=== PATIENT | female | born 1990 | race Caucasian/White ===

== ENCOUNTER → 2023-11-19 09:29 | Outpatient (REF) | payer OTHER, SELFPAY | LOC: WDC 09:29 | PROVIDERS: ATTENDING PHYSICIAN Nurse Practitioner Family; FAMILY PHYSICIAN Physician Assistant Medical | DX: N63.20 Unspecified lump in the left breast, unspecified quadrant (principal) | CPT/HCPCS: 76642 ==

== ENCOUNTER → 2023-11-26 06:27 | Outpatient (REF) | payer OTHER, SELFPAY ==
[2023-11-26 07:49] LABS: Prolactin 15.9 ng/ml (3.0-18.6); Vitamin D, 25-OH*** 60.5 ng/mL (30-80)
[2023-11-26 07:50] LABS: Free T3 2.98 pg/ml (2.77-5.27)
[2023-11-26 08:02] LABS: TSH 2.19 uIU/ml (0.47-4.68)
[2023-11-26 08:04] LABS: Estradiol 106.4 pg/ml
[2023-11-28 20:46] LABS: DHEA Sulfate 69 ug/dL (99-340)
== END ==
LOC: REG 06:27
PROVIDERS: ATTENDING PHYSICIAN Nurse Practitioner Family; FAMILY PHYSICIAN Physician Assistant Medical
DX: E34.9 Endocrine disorder, unspecified (principal); E55.9 Vitamin D deficiency, unspecified; E53.8 Deficiency of other specified B group vitamins; R53.83 Other fatigue; H04.129 Dry eye syndrome of unspecified lacrimal gland; L30.9 Dermatitis, unspecified
CPT/HCPCS: 36415; 82306; 82627; 82670; 84144; 84146; 84270; 84402; 84403; 84443; 84481

== ENCOUNTER → 2024-02-20 06:22 | Outpatient (REF) | payer OTHER, SELFPAY ==
[2024-02-20 08:04] LABS: ALT (SGPT) 15 U/L (0-35); AST (SGOT) 24 U/L (14-36); Albumin 4.7 g/dl (3.5-5.0); Alkaline Phosphatase 50 U/L (38-126); Blood Urea Nitrogen 19 mg/dl (7-17); Calcium 9.5 mg/dl (8.4-10.2); Carbon Dioxide 25 mmol/L (22-30); Chloride 107 mmol/L (98-107); Glucose 88 mg/dl (70-99); Potassium 4.2 mmol/L (3.5-5.1); Sodium 139 mmol/L (135-145); Total Bilirubin 0.6 mg/dl (0.2-1.3); Total Protein 7.1 g/dl (6.3-8.2); eGFR > 60.00
[2024-02-20 08:32] LABS: Estradiol 111.7 pg/ml
[2024-02-20 09:02] LABS: Folate 13.9 ng/ml (2.76-20); Vitamin B12 862 pg/ml (239-931)
[2024-02-23 01:02] LABS: Zinc 72.6 ug/dL (60.0-120.0)
[2024-02-23 02:36] LABS: Homocysteine 7 umol/L (0-15)
[2024-02-23 02:44] LABS: DHEA Sulfate 70 ug/dL (99-340)
== END ==
LOC: REG 06:22
PROVIDERS: ATTENDING PHYSICIAN Nurse Practitioner Family
DX: E34.9 Endocrine disorder, unspecified (principal); E55.9 Vitamin D deficiency, unspecified; E53.8 Deficiency of other specified B group vitamins; R53.83 Other fatigue; H04.129 Dry eye syndrome of unspecified lacrimal gland; L30.9 Dermatitis, unspecified
CPT/HCPCS: 36415; 80053; 82533; 82607; 82627; 82670; 82746; 83090; 84144; 84270; 84402; 84403; 84630

== ENCOUNTER → 2024-06-17 06:38 | Outpatient (REF) | payer OTHER, SELFPAY ==
[2024-06-17 07:35] LABS: % Basophils 0.4 % (0-2); % Eosinophils 1.9 % (0-6); % Immature Granulocytes 0.2 % (0-0.5); % Lymphocytes 38.8 % (20.5-51.1); % Monocytes 4.2 % (1.7-9.3); % Neutrophils 54.5 % (42.2-75.2); Absolute Eosinophils 0.1 10^3/uL (0-0.7); Absolute Lymphocytes 2.2 10^3/uL (1.2-3.4); Absolute Monocytes 0.2 10^3/uL (0.1-0.6); Absolute Neutrophils 3.1 10^3/uL (1.4-6.5); Hemoglobin 12.2 g/dL (12.0-16.0); Mean Corpuscular Hgb 30.6 pg (27.0-31.0); Mean Corpuscular Volume 92.7 fL (81.0-99.0); Mean Platelet Volume 12.1 fL (7.4-10.4); Nucleated Red Blood Cells % 0 %; Platelet Count 167 10^3/uL (130-400); Red Blood Cell Count 3.99 10^6/uL (4.20-5.40); Red Cell Dist. Width 13.6 % (11.5-14.5); White Blood Cell Count 5.7 10^3/uL (4.8-10.8)
[2024-06-17 08:33] LABS: ALT (SGPT) 16 U/L (0-35); AST (SGOT) 23 U/L (14-36); Albumin 4.6 g/dl (3.5-5.0); Alkaline Phosphatase 39 U/L (38-126); Blood Urea Nitrogen 21 mg/dl (7-17); Calcium 9.2 mg/dl (8.4-10.2); Carbon Dioxide 26 mmol/L (22-30); Chloride 105 mmol/L (98-107); Glucose 87 mg/dl (70-99); Iron 118 ug/dl (37-170); Potassium 4.5 mmol/L (3.5-5.1); Sodium 142 mmol/L (135-145); Total Bilirubin 0.6 mg/dl (0.2-1.3); Total Protein 7.1 g/dl (6.3-8.2); eGFR > 60.00
[2024-06-17 08:40] LABS: Percent Saturation 41 % (20-50); Total Iron Binding Capacity 281 ug/dl (265-497)
[2024-06-17 09:49] LABS: Cortisol, Random 11.9 ug/dl
[2024-06-17 10:25] LABS: Folate 15.3 ng/ml (2.76-20); Vitamin B12 764 pg/ml (239-931)
[2024-06-19 11:36] LABS: DHEA Sulfate 75 ug/dL (99-340)
[2024-06-19 12:09] LABS: Homocysteine 7 umol/L (0-15)
== END ==
LOC: REG 06:38
PROVIDERS: ATTENDING PHYSICIAN Nurse Practitioner Family
DX: E34.9 Endocrine disorder, unspecified (principal); E55.9 Vitamin D deficiency, unspecified; E53.8 Deficiency of other specified B group vitamins; R53.83 Other fatigue; H04.129 Dry eye syndrome of unspecified lacrimal gland; L30.9 Dermatitis, unspecified
CPT/HCPCS: 36415; 80053; 82533; 82607; 82627; 82728; 82746; 83090; 83540; 83550; 84270; 84402; 84403; 85025

== ENCOUNTER → 2024-08-12 14:18 | Outpatient (REF) | payer OTHER, SELFPAY ==
[2024-08-12 15:49] LABS: Beta HCG Quantitative 94.35 mIU/ml
== END ==
LOC: REG 14:18
PROVIDERS: ATTENDING PHYSICIAN Advanced Practice Midwife; FAMILY PHYSICIAN Physician Assistant Medical
DX: Z34.90 Encounter for supervision of normal pregnancy, unspecified, unspecified trimester (principal)
CPT/HCPCS: 36415; 84702

== ENCOUNTER → 2024-08-14 06:47 | Outpatient (REF) | payer OTHER, SELFPAY ==
[2024-08-14 08:17] LABS: Beta HCG Quantitative 175.05 mIU/ml
== END ==
LOC: REG 06:47
PROVIDERS: ATTENDING PHYSICIAN Advanced Practice Midwife; FAMILY PHYSICIAN Physician Assistant Medical
DX: Z32.01 Encounter for pregnancy test, result positive (principal)
CPT/HCPCS: 36415; 84702

== ENCOUNTER → 2024-08-25 11:41 | Outpatient (REF) | payer OTHER, SELFPAY | LOC: REG 11:41 | PROVIDERS: ATTENDING PHYSICIAN Obstetrics & Gynecology; FAMILY PHYSICIAN Physician Assistant Medical | DX: Z34.90 Encounter for supervision of normal pregnancy, unspecified, unspecified trimester (principal) | CPT/HCPCS: 36415; 84702 ==

== ENCOUNTER → 2024-09-09 13:32 | Outpatient (REF) | payer OTHER, SELFPAY | LOC: CLAB 13:32 | PROVIDERS: ATTENDING PHYSICIAN Nurse Practitioner Family | DX: Z11.3 Encounter for screening for infections with a predominantly sexual mode of transmission (principal) | CPT/HCPCS: 87491; 87591 ==

== ENCOUNTER → 2024-09-12 11:42 | Outpatient (REF) | payer OTHER, SELFPAY ==
[2024-09-12 12:27] LABS: % Basophils 0.2 % (0-2); % Eosinophils 1.7 % (0-6); % Immature Granulocytes 0.2 % (0-0.5); % Lymphocytes 41.2 % (20.5-51.1); % Monocytes 5.6 % (1.7-9.3); % Neutrophils 51.1 % (42.2-75.2); Absolute Eosinophils 0.1 10^3/uL (0-0.7); Absolute Lymphocytes 2.2 10^3/uL (1.2-3.4); Absolute Monocytes 0.3 10^3/uL (0.1-0.6); Absolute Neutrophils 2.7 10^3/uL (1.4-6.5); Mean Corp Hgb Conc. 33.3 g/dL (33.0-37.0); Mean Corpuscular Hgb 29.5 pg (27.0-31.0); Mean Corpuscular Volume 88.5 fL (81.0-99.0); Mean Platelet Volume 12.1 fL (7.4-10.4); Nucleated Red Blood Cells % 0 %; Platelet Count 159 10^3/uL (130-400); Red Blood Cell Count 3.73 10^6/uL (4.20-5.40); Red Cell Dist. Width 13.5 % (11.5-14.5); White Blood Cell Count 5.3 10^3/uL (4.8-10.8)
[2024-09-12 12:28] LABS: Urine Albumin Negative (Neg - Trace); Urine Bilirubin Negative (Negative); Urine Character Clear (Clear); Urine Color Yellow; Urine Glucose Negative (Negative); Urine Ketone Negative (Negative); Urine Leukocyte 3+ (Negative); Urine Nitrite Negative (Negative); Urine Occult Blood Negative (Negative); Urine Urobilinogen Negative (Neg - 1+)
[2024-09-12 12:49] LABS: Glycohemoglobin (HgbA1c) 5.4 % (4.0-5.6)
[2024-09-12 13:09] LABS: Urine Squamous Cell >30 /LPF (Few)
[2024-09-12 13:10] LABS: Urine Bacteria Few (Negative); Urine White Cell 16-20 /HPF (0-5)
[2024-09-12 14:16] LABS: HIV Combo Negative (Negative)
[2024-09-14 21:24] LABS: Hepatitis B Surface Antigen Negative (Negative)
[2024-09-14 21:41] LABS: Hepatitis B Core Ab, Total Negative (Negative); Hepatitis B Surface Antibody Positive; Hepatitis C Antibody Negative (Negative)
== END ==
LOC: REG 11:42
PROVIDERS: ATTENDING PHYSICIAN Nurse Practitioner Family; FAMILY PHYSICIAN Physician Assistant Medical
DX: Z32.01 Encounter for pregnancy test, result positive (principal)
CPT/HCPCS: 36415; 81003; 81015; 83036; 84702; 85025; 86704; 86706; 86780; 86803; 86850; 86900; 86901; 87086; 87340; 87389

== ENCOUNTER → 2024-10-08 14:02 | Outpatient (REF) | payer OTHER, SELFPAY | LOC: REG 14:02 | PROVIDERS: ATTENDING PHYSICIAN Student in an Organized Health Care Education/Training Program | DX: O02.1 Missed abortion (principal) | CPT/HCPCS: 36415; 84702 ==

== ENCOUNTER 2024-10-14 06:25 | Day surgery (SDC) | payer OTHER, SELFPAY ==
[2024-10-14] VITALS (7 sets, daily range): BP systolic 86–98; BP diastolic 54–66; BMI 20.1
[2024-10-14] MEDS: NORMOSOL-R/PLASMALYTE-A 1000 IV (08:57)
[2024-10-14] MEDS: VIBRAMYCIN 270 MG IV (09:13)
--- NOTE | 2024-10-14 10:37 | W.IMMPOSTOP ---
Surgical Immed Post Op Note
-
Primary Surgeon: Orly Hutton,
Assisting Surgeon: none
Pre-op Diagnosis: Missed miscarriage 12 weeks by LMP, [id number] by CRL
Post-op Diagnosis: Same
Procedure Performed: Dilation and evacuation with suction
Anesthesia Type: General LMA Dr. Carter
Specimen / Cultures: Products of conception
Estimated Blood Loss: 100 mL
Complications: None
Antibiotics: Doxycycline 200 mg IV preop
Operative Findings: Uterus enlarged approximately 12 weeks size, products of conception visualized upon suction.
Blood type is O+ She does not require RhoGAM
Counts correct x 2
== END 2024-10-14 11:30 | disposition home or self-care (01) ==
LOC: SDS 06:25
PROVIDERS: ATTENDING PHYSICIAN Obstetrics & Gynecology
PROC: 10D17ZZ Extraction of Products of Conception, Retained, Via Natural or Artificial Opening (ICD-10-PCS; 2024-10-14)
DX: O02.1 Missed abortion (principal); Z3A.12 12 weeks gestation of pregnancy
CPT/HCPCS: 59820; 88305

== ENCOUNTER 2024-10-17 16:35 | Emergency (ER) | payer OTHER, SELFPAY ==
[2024-10-17 16:52] VITALS: BP 92/61
[2024-10-17 17:21] LABS: % Basophils 0.1 % (0-2); % Eosinophils 0.8 % (0-6); % Immature Granulocytes 0.3 % (0-0.5); % Lymphocytes 15.3 % (20.5-51.1); % Monocytes 4.2 % (1.7-9.3); % Neutrophils 79.3 % (42.2-75.2); Absolute Eosinophils 0.1 10^3/uL (0-0.7); Absolute Lymphocytes 1.1 10^3/uL (1.2-3.4); Absolute Monocytes 0.3 10^3/uL (0.1-0.6); Absolute Neutrophils 5.6 10^3/uL (1.4-6.5); Hematocrit 22.4 % (37.0-47.0); Hemoglobin 7.9 g/dL (12.0-16.0); Mean Corp Hgb Conc. 35.3 g/dL (33.0-37.0); Mean Corpuscular Hgb 30.7 pg (27.0-31.0); Mean Corpuscular Volume 87.2 fL (81.0-99.0); Mean Platelet Volume 11.9 fL (7.4-10.4); Nucleated Red Blood Cells % 0 %; Platelet Count 148 10^3/uL (130-400); Red Blood Cell Count 2.57 10^6/uL (4.20-5.40); Red Cell Dist. Width 14.1 % (11.5-14.5); White Blood Cell Count 7.1 10^3/uL (4.8-10.8)
[2024-10-17 17:34] LABS: Lactic Acid 1.4 mmol/L (0.7-2.0)
[2024-10-17 17:39] LABS: ALT (SGPT) 14 U/L (0-35); AST (SGOT) 20 U/L (14-36); Albumin 4.4 g/dl (3.5-5.0); Alkaline Phosphatase 56 U/L (38-126); Blood Urea Nitrogen 14 mg/dl (7-17); Carbon Dioxide 23 mmol/L (22-30); Chloride 107 mmol/L (98-107); Glucose 139 mg/dl (70-99); Potassium 3.9 mmol/L (3.5-5.1); Sodium 138 mmol/L (135-145); Total Bilirubin 0.6 mg/dl (0.2-1.3); Total Protein 6.7 g/dl (6.3-8.2); eGFR > 60.00
[2024-10-17 17:41] LABS: COVID-19 Antigen Negative (Negative)
--- NOTE | 2024-10-17 18:51 | ED.GENMED ---
History of Present Illness
General
Chief Complaint: Fever
Source: patient and records
Exam Limitations: none
Time Seen by Provider: 10/17/24 18:30
History of Present Illness
History of Present Illness:
34yoF with a recent D&E procedure 3 days ago for a missed at 12 weeks presenting with her for evaluation of a fever. Patient started feeling unwell yesterday with malaise and feeling rundown. She also had a headache. She spiked a
fever to 101.9 earlier today and took Advil with improvement. She believes she has a viral infection. She denies any other specific symptoms other than postnasal drip which she has had for several weeks but this is improving. She denies any
pelvic pain, vaginal discharge, odor, dysuria, vomiting, diarrhea, rashes. No recent travel or history of IV drug use. Of note, patient was in the hospital all day yesterday visiting her grandmother.
Past History
Past History
ED Past Medical History: None
ED Past Surgical History: None
Social History
Tobacco: Non-smoker
Alcohol: None
Personal:
Phy Exam
General Physical Exam
General Presentation: well appearing and no apparent distress
General age: appears stated age
General Skin: warm and dry
General Habitus: normal
General Mental: alert
ENT Exam
ENT Exam: pharynx normal, neck supple and normocephalic
Cardiovascular Exam
Cardiovascular Exam: regular rate/rhythm and no murmur
Pulmonary Exam
Pulmonary Exam: lungs clear, no respiratory distress, no rales, no crackles, no rhonchi and no wheezing
Gastrointestinal Exam
Gastrointestinal Exam: non tender, soft and non distended
Genitourinary Exam Female
Exam Female: other (No purulent vaginal discharge or bleeding on speculum exam. No cervical motion tenderness. )
Neurological Exam
Neurological Exam: alert
Debo Coma Scale
Eye Opening: Spontaneous
Verbal Response: Oriented
Motor Response: Obeys Commands
GCS Total Score: 15
Skin Exam
Skin Exam: normal color and warm/dry
Psychiatric Exam
Psychiatric Exam: normal mood/affect
Course
Orders/Labs/Results
Orders:
Orders
10/17/24 17:10
COVID-19 Antigen Urgent
Source: Nasal Swab
Complete Blood Count/With Diff Urgent
Comprehensive Metabolic Panel Urgent
Lactate Level [Lactic Acid] Q4H
Monotest Urgent
Comment: ADD ON
Blood Culture Urgent
VIKRAM Source: Blood/Venous
Specimen Description:
Influenza A+B Rapid Molecular Urgent
VIKRAM Source: Nasal Swab
Specimen Description:
10/17/24 18:48
Add On- LAB Urgent
Tests Added?: monotest
10/17/24 18:53
Urinalysis Reflex To Culture Urgent
Date Specimen was Collected: 10/17/24
Time Specimen was Collected: 18:52
Abnormal Lab Results
10/17/24
17:10
RBC 2.57 L 10^6/uL
(4.20-5.40)
Hgb 7.9 L g/dL
(12.0-16.0)
Hct 22.4 L %
(37.0-47.0)
MPV 11.9 H fL
(7.4-10.4)
Absolute Lymphs (auto) 1.1 L 10^3/uL
(1.2-3.4)
Neutrophils % 79.3 H %
(42.2-75.2)
Lymphocytes % 15.3 L %
(20.5-51.1)
Glucose 139 H mg/dl
(70-99)
10/17/24 17:10
10/17/24 17:10
Vital Signs
Initial and Last Documented VS:
Initial Vital Signs
Temp Pulse Resp BP Pulse Ox
100.3 F 105 16 92/61 99
10/17/24 16:52 10/17/24 16:52 10/17/24 16:52 10/17/24 16:52 10/17/24 16:52
Last Documented Vital Signs
Temp Pulse Resp BP Pulse Ox
100.3 F 85 16 93/58 98
10/17/24 16:52 10/17/24 19:33 10/17/24 19:50 10/17/24 19:33 10/17/24 19:33
MDM/Problems Addressed
Differential Diagnosis Includes:
34yoF here for fever. Tmax 101.9 today. C/o fatigue and headache. S/p D&E 3 days ago but denies any abdominal/pelvic pain or vaginal discharge. Temp 100.3 on arrival. BP 92/61 which is consistent with blood pressures 3 days ago. Exam is reassuring.
No purulent vaginal discharge noted on speculum exam and there is no cervical motion tenderness. No clinical evidence of endometritis. Differential diagnosis includes but is not limited to: Viral illness, mononucleosis, UTI
Initial ED plan: Labs obtained in triage. White count and lactate within normal limits. Hemoglobin is 7.9, down from 11.0 last month. COVID and flu swabs are negative. Will check Monospot and UA. Will consult gynecology for further
recommendations.
*Critical Care Note
Total Time (30-74mins, 75-104mins- exclusive of procedures): Not Applicable
Update Note
Update Note:
Monospot negative. UA bland without signs of infection. Patient was evaluated by Dr. Hutton at bedside who agrees that there is no evidence of endometritis. Patient cleared for discharge. Unclear etiology of fever, suspect viral illness. Blood
culture sent in triage which is pending. Patient in agreement with plan and is eager to be discharged. She was advised to follow-up closely with GLOBAL ACCOUNT DIRECTOR and her PCP in the outpatient setting. Strict ED return precautions discussed. Patient
discharged in stable condition.
ED Attending Note
-
Portions of this chart may have been created with voice recognition software.� Occasional wrong word or��sound alike� substitutions may have occurred due to the inherent limitations of voice recognition software.
Discharge Plan
Departure
Patient Disposition: Home (Routine Discharge)
Date of Disposition: 10/17/24
Time of Disposition: 19:38
Patient with high blood pressure during this ER visit?: No
Discharge Problem:
Fever, Anemia
Instructions: Fever, Adult (DC)
Prescriptions:
No Action
Probiotic
1 tab PO DAILY
vitamin B complex
1 tab PO DAILY
vitamin D3-vitamin K2
1 cap PO DAILY
zinc
1 tab PO DAILY
magnesium citrate
1 tab PO DAILY
Referrals:
Orly Hutton, [Active] -
Yang Atwood MD [Family Provider] -
Activity Restrictions/Additional Instructions:
Drink plenty of fluids. Start taking an iron supplement for your anemia. Take Tylenol and ibuprofen as needed.
Please follow-up with your family doctor and GLO[facility] ACCOUNT DIRECTOR on Saturday. Return to the ER with any new or worsening symptoms including pelvic pain or vaginal discharge.
Interventions
Interventions:
*Risk Screen - Suicide Last Done: 10/17/24 18:59
*General Assessment Last Done: 10/17/24 18:59
*Neglect/Abuse Screening Last Done: 10/17/24 18:59
*ED- Fall Risk Assessment Last Done: 10/17/24 18:59
*ED COVID-19 Vaccine History Last Done: 10/17/24 18:59
*Nursing Disposition Last Done: 10/17/24 19:50
ED- Neurological Assessment Last Done: 10/17/24 18:59
ED-Skin Assessment Last Done: 10/17/24 18:59
Discharge Date and Time
Discharge Date/Time: 10/17/24 20:13
Print Language: MACEDONIAN
[2024-10-17 19:07] LABS: Urine Albumin Negative (Neg - Trace); Urine Bilirubin Negative (Negative); Urine Character Clear (Clear); Urine Color Yellow; Urine Glucose Negative (Negative); Urine Ketone Negative (Negative); Urine Leukocyte Negative (Negative); Urine Nitrite Negative (Negative); Urine Occult Blood Negative (Negative); Urine Urobilinogen Negative (Neg - 1+)
[2024-10-17 19:27] LABS: Monotest Negative (Negative)
[2024-10-17 19:33] VITALS: BP 93/58
--- NOTE | 2024-10-17 19:49 | CON.MD ---
Consultation - Medical
-
34-year-old G3, P2 female presented to the ER at my request after calling to report temperature 101 at home today. She has associated chills and general malaise. She says she feels somewhat rundown. She underwent dilation and evacuation on
10/14/2024 for missed miscarriage at 9 weeks 6 days gestation. She was administered IV doxycycline prior to D&E procedure. She had been feeling well after the surgery. She denies any significant vaginal bleeding. She denies any
dizziness, lightheadedness. She called me earlier today to report a temperature of 100.3. She states she was in the ER waiting area all day yesterday with her grandmother. She denied any abdominal tenderness, foul-smelling vaginal discharge or
other concerns. I asked her to come to the emergency room for evaluation to make sure she does not have endometritis.
Past medical history: Negative
Past surgical history: Dilation and evacuation
Obstetric history: 2 vaginal deliveries, recent missed AB status post D&E 10/14
NKDA
Medications: Tylenol/ibuprofen as needed
Social history: , negative tobacco, alcohol, drug use. Employed as an OT
Family history: Noncontributory
Review of systems:+ temp 101, + chills episode, +general fatigue/ malaise, negative N/V/D. Denies abdominal pain, dysuria, abnormal vaginal discharge, vaginal odor, heavy bleeding.
Physical exam:
Temp
Appearance: Well-appearing, nontoxic-appearing female
Heart regular rate
Lungs clear
Abdomen: Nondistended nontender, negative suprapubic tenderness
Bimanual exam: No cervical motion tenderness, nontender uterus, no active bleeding
Extremities: No calf pain or tenderness
Labs:
WBC 7.1
H/H: 7.9/22.4
Platelet 148
CMP unremarkable
Lactic acid normal
UA negative
Monoscreen negative
Influenza screen negative
Impression:
1. Fever-unknown etiology. Possible viral syndrome
2. Status post D&E 10/14/2024. Patient does not examine to have any cervical motion tenderness or uterine tenderness or purulent discharge on exam and does not meet criteria for endometritis. White blood cell count and lactic acid levels are also
normal.
Plan: I suspect the patient has fever unrelated to her D&E procedure. She does not examine or meet criteria to have endometritis at this time. She will be discharged to home. The patient was asked to monitor her symptoms and to contact me if she
has persistent fevers, if she develops any abdominal or pelvic pain, abnormal discharge or other concerns. I do not feel empiric antibiotics are needed at this time since her exam is completely benign. Patient also agrees with this plan and
prefers not to take antibiotics. She will follow-up in the office with me next week.
Blood cultures and urine cultures were sent and are pending.
Time 30min.
== END 2024-10-17 20:13 | disposition home or self-care (01) ==
LOC: EMR 16:35
PROVIDERS: Emergency Medicine; Physician Assistant; EMERGENCY PHYSICIAN Emergency Medicine; FAMILY PHYSICIAN Family Medicine; OTHER PHYSICIAN Obstetrics & Gynecology
DX: R50.9 Fever, unspecified (principal); D64.9 Anemia, unspecified; Z11.52 Encounter for screening for COVID-19; Z87.59 Personal history of other complications of pregnancy, childbirth and the puerperium; Z98.890 Other specified postprocedural states
CPT/HCPCS: 99283; 80053; 81003; 83605; 85025; 86308; 87040; 87502; 87811

== ENCOUNTER → 2024-10-20 12:14 | Outpatient (REF) | payer OTHER, SELFPAY ==
[2024-10-20 13:39] LABS: % Basophils 0.2 % (0-2); % Eosinophils 2.2 % (0-6); % Immature Granulocytes 0.3 % (0-0.5); % Lymphocytes 36.4 % (20.5-51.1); % Monocytes 3.6 % (1.7-9.3); % Neutrophils 57.3 % (42.2-75.2); Absolute Eosinophils 0.1 10^3/uL (0-0.7); Absolute Lymphocytes 2.1 10^3/uL (1.2-3.4); Absolute Monocytes 0.2 10^3/uL (0.1-0.6); Absolute Neutrophils 3.3 10^3/uL (1.4-6.5); Hematocrit 26.1 % (37.0-47.0); Hemoglobin 8.7 g/dL (12.0-16.0); Mean Corp Hgb Conc. 33.3 g/dL (33.0-37.0); Mean Platelet Volume 12.2 fL (7.4-10.4); Nucleated Red Blood Cells % 0 %; Platelet Count 185 10^3/uL (130-400); Red Cell Dist. Width 14.7 % (11.5-14.5); White Blood Cell Count 5.8 10^3/uL (4.8-10.8)
[2024-10-20 14:31] LABS: Iron 54 ug/dl (37-170)
[2024-10-20 14:41] LABS: Percent Saturation 20 % (20-50); Total Iron Binding Capacity 266 ug/dl (265-497)
[2024-10-20 14:42] LABS: Free T4 1.13 ng/dl (0.78-2.19)
[2024-10-20 14:56] LABS: TSH 2.24 uIU/ml (0.47-4.68)
[2024-10-20 15:00] LABS: Ferritin 33.1 ng/ml (6.24-137)
== END ==
LOC: REG 12:14
PROVIDERS: ATTENDING PHYSICIAN Obstetrics & Gynecology; FAMILY PHYSICIAN Physician Assistant Medical
DX: O02.1 Missed abortion (principal); D64.9 Anemia, unspecified
CPT/HCPCS: 36415; 82728; 83540; 83550; 84439; 84443; 85025

== ENCOUNTER → 2024-10-24 17:44 | Day surgery (SDC) | payer OTHER, SELFPAY ==
[2024-10-24] VITALS (24 sets, daily range): BP systolic 83–107; BP diastolic 51–92; BMI 20.1
[2024-10-24 13:39] LABS: % Basophils 0.2 % (0-2); % Eosinophils 1.3 % (0-6); % Immature Granulocytes 0.3 % (0-0.5); % Lymphocytes 30.7 % (20.5-51.1); % Monocytes 4.2 % (1.7-9.3); % Neutrophils 63.3 % (42.2-75.2); Absolute Eosinophils 0.1 10^3/uL (0-0.7); Absolute Lymphocytes 2.9 10^3/uL (1.2-3.4); Absolute Monocytes 0.4 10^3/uL (0.1-0.6); Absolute Neutrophils 5.9 10^3/uL (1.4-6.5); Hematocrit 26.6 % (37.0-47.0); Hemoglobin 9.1 g/dL (12.0-16.0); Mean Corp Hgb Conc. 34.2 g/dL (33.0-37.0); Mean Corpuscular Hgb 30.4 pg (27.0-31.0); Mean Platelet Volume 10.6 fL (7.4-10.4); Nucleated Red Blood Cells % 0 %; Platelet Count 286 10^3/uL (130-400); Red Blood Cell Count 2.99 10^6/uL (4.20-5.40); Red Cell Dist. Width 15.2 % (11.5-14.5); White Blood Cell Count 9.3 10^3/uL (4.8-10.8)
[2024-10-24 13:51] LABS: APTT 25.5 Sec (23.4-35.0); INR 0.94; PT 12.9 Sec (11.4-14.6)
[2024-10-24 13:53] LABS: ALT (SGPT) 15 U/L (0-35); AST (SGOT) 27 U/L (14-36); Albumin 4.5 g/dl (3.5-5.0); Alkaline Phosphatase 83 U/L (38-126); Blood Urea Nitrogen 15 mg/dl (7-17); Calcium 10.1 mg/dl (8.4-10.2); Carbon Dioxide 24 mmol/L (22-30); Chloride 107 mmol/L (98-107); Glucose 98 mg/dl (70-99); Sodium 141 mmol/L (135-145); Total Bilirubin 0.7 mg/dl (0.2-1.3); Total Protein 7.5 g/dl (6.3-8.2); eGFR > 60.00
[2024-10-24] MEDS: NSS 1000 IV (13:56)
[2024-10-24] MEDS: DILAUDID 0.25 MG IV (13:57)
[2024-10-24 14:09] LABS: Beta HCG Quantitative 874.11 mIU/ml
--- NOTE | 2024-10-24 14:27 | ED.GENMED ---
History of Present Illness
General
Chief Complaint: Post Operative Problem(s)
Source: patient
Exam Limitations: none
Time Seen by Provider: 10/24/24 13:23
Nursing documentation reviewed up to this point in time: agreed with
History of Present Illness
History of Present Illness:
pt is a 34 y/o F with h/o
10 days post D&E for failed [address] alexandre
pt says she had light spotting for a few days
acutally came to ED 10/17 with a fever but felt like she had a viral infection
fever resolved
and then about 5 days ago started having heavier bleeding like menstrual cycle
but today since 1030 am pt has had significant bleeding, with moderate sized clots, has passed bleeding and clots through underwear onto adn through pants
pt had hg of 7.4 the other day when she hwas here, but it was repeated on to be 8.7
she is on iron
no syncope, fever, chills
she is having moderate cramping like contractions that is pretty bad
no vomiting
dr. alexandre made dr. land aware
Past History
Past History
ED Past Medical History: None
ED Past Surgical History: Gynecological
Social History
Tobacco: Non-smoker
Alcohol: None
Personal:
Review of Systems
Review of Systems
Allergies reviewed?: Yes
All Other Systems: Not applicable
Phy Exam
Physical Exam
Physical Exam:
GENERAL: Alert , shakey/tremulous
EYE: pupils equal and reactive
NECK: Supple
ENT: o/p clr, mmm.
CARDIAC: Regular rate and rhythm .
LUNGS: Clear breath sounds bilaterally, no acute respiratory distress, no wheezes/rales/rhonchi
ABDOMEN: Soft, moderate pelvic, no r/g, no cvat, normal bowel sounds
gU; mod blood in vault with 2 mod clots/tissue removed;
os fingertip open
NEUROLOGICAL: Alert and oriented, no focal neuro deficits
SKIN: Warm and dry, skin intact.
MUSCULOSKELETAL: No edema, well perfused. neg martina's sign
PSYCH: Normal and appropriate interaction.
Course
Orders/Labs/Results
Orders:
Orders
10/24/24 13:31
Type+Screen Urgent
Beta HCG Quantitative Urgent
Is this a screen?: No
Complete Blood Count/With Diff Urgent
Comprehensive Metabolic Panel Urgent
PTT Urgent
Prothrombin Time Urgent
10/24/24 13:34
HYDROmorphone [Dilaudid] 0.25 mg .ROUTE .STK-MED ONE
10/24/24 13:40
0.9% Sodium Chloride 1000 ml [Nss] 1,000 ml IV BOLUS
10/24/24 13:56
US Transvaginal [US Pelvis W Transvag Combined] Urgent
Comment:
Reason For Exam: 10 days post D&E heavy bleeding
10/24/24 13:57
HYDROmorphone [Dilaudid] 0.25 mg IV NOW STA
10/24/24 Dinner
NPO
Allow oral meds: Yes
Allow clear liquids: No
10/24/24 15:44
Compression Sleeves [Pneumatic Compression Sleeves] As Directed
Type: Knee high
10/24/24 15:45
Doxycycline Hyclate [Vibramycin] 200 mg 0.9% Sodium Chloride 250 ml [Nss] 250 ml IV PRE OP
10/24/24 15:46
DX Deep Vein Thrombosis Video Routine
10/24/24 17:29
US Pelvis Only (non-obstetric) Routine
Comment:
Reason For Exam: intra-op scan for retained POC
10/24/24 17:38
Lidocaine HCl/Pf [Xylocaine-Mpf 1% Vial] 50 mg .ROUTE .STK-MED ONE
Propofol [Diprivan] 20 ml .ROUTE .STK-MED
10/24/24 17:39
Fentanyl Citrate/Pf [Sublimaze] 100 mcg .ROUTE .STK-MED ONE
10/24/24 18:02
Dexamethasone Sod Phosphate [Decadron] 20 mg .ROUTE .STK-MED ONE
Ondansetron Injectable [Zofran] 4 mg .ROUTE .STK-MED ONE
10/24/24 18:03
OR Pathology Routine
Pre-Operative Diagnosis: INCOMPLETE MISSED
Operative Procedure: D&E
Surgeon: JEFF
Circulating Nurse: CHEVY
Specimen Type: PRODUCTS OF CONCEPTION
10/24/24 18:22
Methylergonovine Maleate [Methergine Injection] 0.2 mg IM NOW STA
10/24/24 18:24
miSOPROStol [Cytotec] 800 mcg PO NOW STA
10/24/24 18:26
Phenylephrine HCl/0.9% NaCl [Asher-Synephrine] 1,000 mcg .ROUTE .STK-MED ONE
10/24/24 18:39
Acetaminophen 1000MG/100Ml [Ofirmev] 1,000 mg in 100 ml .ROUTE .STK-MED
10/24/24 19:21
Tranexamic Acid 1000 mg/100 ml [Tranexamic Acid] 1,000 mg in 100 ml IV ONCE
10/24/24 19:22
H&H Urgent
10/24/24 19:28
HYDROmorphone [Dilaudid] 0.25 mg IV PACU-Q5MPRN PRN
HYDROmorphone [Dilaudid] 0.5 mg IV PACU-Q5MPRN PRN
Meperidine [Demerol] 12.5 mg IV PACU-Q5MPRN PRN
Ondansetron Injectable [Zofran] 4 mg IV PACU-ONCEPRN PRN
Prochlorperazine [Compazine] 5 mg IV PACU-ONCEPRN PRN
Notify MD As Directed
Notify physician if: for SDS patients with known or suspected sleep obstructive sleep apnea, monitor in the
PACU.
Notify MD for any apneic/desaturation episodes
O2 Therapy [RESP] Urgent
Titrate/Wean O2 to maintain O2 sat greater than (%): 92
Special Instructions: -Provide supplemental oxygen to achieve O2 sat of 92% or greater.
-After 15 min, may wean O2 and discontinue if patient is able to maintain O2 sat of 92%
or greater during recovery period.
If patient is a discharge home, without oxygen therapy, notify anestheiologist if
unable to maintain O2 SAT of 92% or greater on room air for MD clearance.
10/24/24 19:29
Ketorolac [Toradol] 15 mg IV NOW STA
10/24/24 19:30
Normosol (Mult Electrolytes) [Normosol-R/Plasmalyte-A] 1,000 ml IV PER PROTOCOL
10/24/24 19:56
Ondansetron Injectable [Zofran] 4 mg .ROUTE .STK-MED ONE
10/24/24 21:00
Normosol (Mult Electrolytes) [Normosol-R/Plasmalyte-A] 1,000 ml IV SDS-ONCE
Ondansetron Injectable [Zofran] 4 mg IV SDS-ONCEPRN PRN
Oxycodone [Roxicodone] 10 mg PO SDS-Q4HPRN PRN
Oxycodone [Roxicodone] 5 mg PO SDS-Q4HPRN PRN
Abnormal Lab Results
10/24/24 10/24/24
13:31 19:22
RBC 2.99 L 10^6/uL
(4.20-5.40)
Hgb 9.1 L g/dL 7.3 L g/dL
(12.0-16.0) (12.0-16.0)
Hct 26.6 L % 22.1 L %
(37.0-47.0) (37.0-47.0)
RDW 15.2 H %
(11.5-14.5)
MPV 10.6 H fL
(7.4-10.4)
10/24/24 19:22
10/24/24 13:31
Vital Signs
Initial and Last Documented VS:
Initial Vital Signs
Temp Pulse Resp BP Pulse Ox
36.8 C 82 16 103/69 100
10/24/24 13:18 10/24/24 13:18 10/24/24 13:18 10/24/24 13:18 10/24/24 13:18
Last Documented Vital Signs
Temp Pulse Resp BP Pulse Ox
37.3 C 72 18 95/64 97
10/24/24 21:00 10/24/24 21:00 10/24/24 21:00 10/24/24 21:00 10/24/24 20:38
MDM/Problems Addressed
Differential Diagnosis Includes:
incomplete miscarriage, anemia
MDM/Problems Addressed:
34 y/o F
D&E for failed 10 days ago (12 weeks gestation)
started having more bleeding tonight
some lightheadedness
severe cramping pain
here borderlin hypotesnsive 100s
not tachy
having a lot of pelvic pressure
on exam mod bleeding in vault with 2 moderate sized clots suctioned out and then bleeding slowed
hg improved from earlierr in the week
US shows some retained products likely
obgyne waware, consented pt for another D&E
*Critical Care Note
Total Time (30-74mins, 75-104mins- exclusive of procedures): Not Applicable
ED Attending Note
-
Portions of this chart may have been created with voice recognition software.� Occasional wrong word or��sound alike� substitutions may have occurred due to the inherent limitations of voice recognition software.
Discharge Plan
Departure
Patient Disposition: Admit
Date of Disposition: 10/24/24
Time of Disposition: 15:58
Admit to: OR
Admit to doctor: defour
Presentation/result/management discussed w/ accepting MD/DO: defour
Patient with high blood pressure during this ER visit?: No
Condition: Fair
Covid-19: Not Applicable
Discharge Problem:
Retained products of conception
Interventions
Interventions:
*Risk Screen - Suicide Last Done: 10/24/24 15:42
*General Assessment Last Done: 10/24/24 14:00
*Neglect/Abuse Screening Last Done: 10/24/24 15:42
*ED- Fall Risk Assessment Last Done: 10/24/24 14:00
*ED COVID-19 Vaccine History Last Done: 10/24/24 14:00
*Nursing Disposition Last Done: 10/24/24 17:43
ED-Skin Assessment Last Done: 10/24/24 14:01
Discharge Date and Time
Discharge Date/Time: 10/24/24 17:44
--- NOTE | 2024-10-24 15:49 | HP.FOC2 ---
Focused History & Physical
Chief Complaint
HPI:
Chief Complaint: Vaginal Bleeding
HPI / Indication for Planned Procedure: 34yo s/p D&E on 10/14 for missed Ab at 10 weeks presents to the ER today due to increased bleeding and passing clots since this morning. She states after the procedure she had light bleeding, then 2
days ago she started to feel a lot of pressure in the rectum and then this morning started to pass clots then BRB with cramping. She feels light headed. She denies n/v/f/c. She did have a fever a week ago with body aches but she attributed this to a
viral infection. Of note,she had a low Hgb of 7.9 on 10/15, the day after her procedure.
Per ER Provider on her exam she saw a moderate size clots in the vagina that were suctioned out, then bleeding seemed to slow. Also in US she states patient had another cup of blood on the bedpan and blood pressure dipped once she returned to the
room.
Relevant Past Medical History: Negative
Relevant Social History: Negative
Relevant Family History: Positive for (Mother- Brain Cancer)
Relevant Past Surgical History: Positive for (D&C on 10/14, ACL repair)
Review of Systems
Review of Pertinent Systems: All Systems Negative
Medication
See Medication form for detailed medications: Yes
Medication List (including Herbals & OTC):
Probiotic 1 tab PO DAILY 10/12/24
magnesium citrate 1 tab PO DAILY 10/12/24
vitamin B complex 1 tab PO DAILY 10/12/24
vitamin D3-vitamin K2 1 cap PO DAILY 10/12/24
zinc 1 tab PO DAILY 10/12/24
Allergies and Reactions
Patient has Allergies: Yes
Noted Allergies and Reactions:
Allergy/AdvReac Type Severity Reaction Status Date / Time
lactase [From Dairy Aid] Allergy Unknown intolerance Verified 10/17/24 16:55
acetaminophen [From Tylenol] Allergy Itching Verified 10/17/24 16:55
adhesive Allergy Rash Verified 10/17/24 16:55
Pertinent Physical Exam
All Other Systems: Negative
Abdomen: Normal
Other: SSE: moderate amount of blood pooling in vagina, no clots seen.
Diagnosis / Assessment
34yo s/p D&E with Bleeding and thickened EMS
Plan / Procedure
I reviewed the US report with the patient and her . Explained that the endometrium is distended with blood and material possibly blood products or less likely retained tissue. However given her bleeding, her slight hypotension and symptomatic
anemia (feeling lightheaded), she is not someone I would recommend medical management on, but rather I recommend we repeat the D&E to evacuate the material that is present and thus slow her bleeding. Patient ultimately agrees and I reviewed consent
with her
Doxycycline 200mg IV ordered
NPO
Anesthesia and OR informed. They are starting another case now, so we are on hold
Anesthesia/Sedation to be done by Anesthesia Provider: Yes
Vital Signs and Labs
-
Vital Signs and Labs:
Vital Signs
Temp Pulse Resp BP Pulse Ox
98.3 F 90 14 93/51 99
10/24/24 13:18 10/24/24 15:37 10/24/24 15:37 10/24/24 15:37 10/24/24 15:37
Lab Results
10/24/24 13:31
10/24/24 13:31
PT 12.9 Sec (11.4-14.6) 10/24/24 13:31
INR 0.94 10/24/24 13:31
APTT 25.5 Sec (23.4-35.0) 10/24/24 13:31
Sodium 141 mmol/L (135-145) 10/24/24 13:31
Potassium 4.0 mmol/L (3.5-5.1) 10/24/24 13:31
BUN 15 mg/dl (7-17) 10/24/24 13:31
Glucose 98 mg/dl (70-99) 10/24/24 13:31
Calcium 10.1 mg/dl (8.4-10.2) 10/24/24 13:31
Imaging Data
-
Pelvic US: The uterus measures 9.8 x 6.1 cm. The uterus has a homogeneous echotexture without focal mass. Endometrial stripe is heterogeneously thickened and measures 20 mm maximal thickness. Probable blood products within the endometrium without
significant color flow demonstrated.
The right ovary measures 2.8 x 1.7 x 1.9 cm and is within normal limits.
The left ovary measures 3.6 x 3.3 x 2.8 cm and is within normal limits.
Urinary bladder shows no gross abnormality. There is no suspicious adnexal mass. Small amount of simple free fluid in the pelvis is likely physiologic.
IMPRESSION:

1. Heterogeneously thickened endometrium likely containing blood products. No overt sonographic evidence for retained products of conception.
[2024-10-24] MEDS: TRANEXAMIC ACID 100 IV (19:35)
[2024-10-24 19:36] LABS: Hematocrit 22.1 % (37.0-47.0); Hemoglobin 7.3 g/dL (12.0-16.0)
[2024-10-24] MEDS: ZOFRAN 4 MG IV (19:57)
--- NOTE | 2024-10-24 20:31 | W.PN.UPDATE ---
Update Note
Progress Note Update
Patient seen in PACU post op to reevaluate her bleeding. On first check a small-moderate amount of blood noted on her pad. At this point TXA ordered.
H/H was previously ordered in PACU and was 7.3/ (previously 9.7)
On second check after TXA infusion was completed, nurse states there was only minimal blood on the pad. Patient feels nausea and cramping.
Vitals have remained stable throughout the time she is in PACU. BPs 90/50-60s and Pulse in the 70-80s
Offered to monitor her overnight given the anemia but patient prefers to go home. States she lives 3 mins away and can return quickly if needed. Bleeding expectations reviewed.
== END | disposition home or self-care (01) ==
LOC: EMR 13:14 → PACUI 17:44
PROVIDERS: Physician Assistant; ATTENDING PHYSICIAN Obstetrics & Gynecology; EMERGENCY PHYSICIAN Emergency Medicine; FAMILY PHYSICIAN Obstetrics & Gynecology
DX: O03.1 Delayed or excessive hemorrhage following incomplete spontaneous abortion (principal)
CPT/HCPCS: 59812; 88305; 76830; 76856; 80053; 84702; 85014; 85018; 85025; 85610; 85730; 86850; 86900; 86901; 96361; 96374; 99285

== ENCOUNTER → 2024-10-27 10:15 | Outpatient (REF) | payer OTHER, SELFPAY ==
[2024-10-27 11:39] LABS: % Basophils 0.2 % (0-2); % Eosinophils 1.5 % (0-6); % Immature Granulocytes 0.2 % (0-0.5); % Lymphocytes 43.2 % (20.5-51.1); % Monocytes 4.3 % (1.7-9.3); % Neutrophils 50.6 % (42.2-75.2); Absolute Eosinophils 0.1 10^3/uL (0-0.7); Absolute Lymphocytes 2.3 10^3/uL (1.2-3.4); Absolute Monocytes 0.2 10^3/uL (0.1-0.6); Absolute Neutrophils 2.7 10^3/uL (1.4-6.5); Hematocrit 26.5 % (37.0-47.0); Hemoglobin 8.7 g/dL (12.0-16.0); Mean Corp Hgb Conc. 32.8 g/dL (33.0-37.0); Mean Corpuscular Hgb 30.2 pg (27.0-31.0); Mean Platelet Volume 12.1 fL (7.4-10.4); Nucleated Red Blood Cells % 0 %; Platelet Count 216 10^3/uL (130-400); Red Blood Cell Count 2.88 10^6/uL (4.20-5.40); Red Cell Dist. Width 16.2 % (11.5-14.5); White Blood Cell Count 5.3 10^3/uL (4.8-10.8)
[2024-10-27 12:06] LABS: Iron 55 ug/dl (37-170)
[2024-10-27 12:15] LABS: Percent Saturation 18 % (20-50); Total Iron Binding Capacity 292 ug/dl (265-497)
[2024-10-27 12:39] LABS: Ferritin 19.2 ng/ml (6.24-137)
== END ==
LOC: REG 10:15
PROVIDERS: ATTENDING PHYSICIAN Obstetrics & Gynecology; FAMILY PHYSICIAN Physician Assistant Medical
DX: D64.9 Anemia, unspecified (principal)
CPT/HCPCS: 36415; 82728; 83540; 83550; 85025

== ENCOUNTER → 2024-12-18 06:34 | Outpatient (REF) | payer OTHER, SELFPAY ==
[2024-12-18 07:19] LABS: % Basophils 0.4 % (0-2); % Eosinophils 2.2 % (0-6); % Immature Granulocytes 0.2 % (0-0.5); % Lymphocytes 42.7 % (20.5-51.1); % Monocytes 4.3 % (1.7-9.3); % Neutrophils 50.2 % (42.2-75.2); Absolute Eosinophils 0.1 10^3/uL (0-0.7); Absolute Lymphocytes 2.4 10^3/uL (1.2-3.4); Absolute Monocytes 0.2 10^3/uL (0.1-0.6); Absolute Neutrophils 2.8 10^3/uL (1.4-6.5); Hematocrit 36.2 % (37.0-47.0); Hemoglobin 12.1 g/dL (12.0-16.0); Mean Corp Hgb Conc. 33.4 g/dL (33.0-37.0); Mean Corpuscular Hgb 29.4 pg (27.0-31.0); Mean Corpuscular Volume 87.9 fL (81.0-99.0); Mean Platelet Volume 11.8 fL (7.4-10.4); Nucleated Red Blood Cells % 0 %; Platelet Count 199 10^3/uL (130-400); Red Blood Cell Count 4.12 10^6/uL (4.20-5.40); Red Cell Dist. Width 13.9 % (11.5-14.5); White Blood Cell Count 5.5 10^3/uL (4.8-10.8)
[2024-12-18 08:12] LABS: ALT (SGPT) 12 U/L (0-35); AST (SGOT) 20 U/L (14-36); Albumin 4.5 g/dl (3.5-5.0); Alkaline Phosphatase 47 U/L (38-126); Blood Urea Nitrogen 17 mg/dl (7-17); Calcium 9.4 mg/dl (8.4-10.2); Carbon Dioxide 24 mmol/L (22-30); Chloride 110 mmol/L (98-107); Glucose 92 mg/dl (70-99); HDL Cholesterol 73 mg/dl; Iron 69 ug/dl (37-170); LDL Cholesterol, Calculated 60 mg/dl; Potassium 4.2 mmol/L (3.5-5.1); Sodium 141 mmol/L (135-145); Total Bilirubin 0.3 mg/dl (0.2-1.3); Total Cholesterol 142 mg/dl (50-199); Total Protein 7.3 g/dl (6.3-8.2); Triglyceride 46 mg/dl (10-149); Very Low Density Lipoprotein 9 mg/dl (0-30); eGFR > 60.00
[2024-12-18 08:17] LABS: Free T3 3.35 pg/ml (2.77-5.27); Free T4 1.24 ng/dl (0.78-2.19)
[2024-12-18 08:21] LABS: Percent Saturation 20 % (20-50); Total Iron Binding Capacity 337 ug/dl (265-497)
[2024-12-18 08:29] LABS: CRP, Ultra Sensitive < 0.30 mg/L (0.30-5.00)
[2024-12-18 08:30] LABS: Cortisol, Random 14.2 ug/dl; TSH 2.38 uIU/ml (0.47-4.68)
[2024-12-18 08:34] LABS: Ferritin 8.9 ng/ml (6.24-137)
[2024-12-18 08:49] LABS: Vitamin B12 780 pg/ml (239-931)
[2024-12-20 00:31] LABS: Homocysteine 8 umol/L (0-15)
[2024-12-20 00:40] LABS: DHEA Sulfate 54 ug/dL (99-340)
[2024-12-20 01:30] LABS: Zinc 70.4 ug/dL (60.0-120.0)
[2024-12-20 02:14] LABS: ANA, IgG Reflex to HEp-2 Detected (None Detected)
[2024-12-21 08:06] LABS: ANA, HEp-2, IgG <1:80 (<1:80)
== END ==
LOC: REG 06:34
PROVIDERS: ATTENDING PHYSICIAN Nurse Practitioner Family
DX: E34.9 Endocrine disorder, unspecified (principal); E55.9 Vitamin D deficiency, unspecified; E53.8 Deficiency of other specified B group vitamins; R53.83 Other fatigue; H04.129 Dry eye syndrome of unspecified lacrimal gland; L30.9 Dermatitis, unspecified
CPT/HCPCS: 36415; 80053; 80061; 82533; 82607; 82627; 82728; 83090; 83540; 83550; 84270; 84402; 84403; 84439; 84443; 84481; 84630; 85025; 86038; 86141

== ENCOUNTER → 2025-07-16 06:57 | Outpatient (REF) | payer OTHER, SELFPAY ==
[2025-07-16 08:35] LABS: C-Reactive Protein < 5.00 mg/L (0.0-10.00)
[2025-07-16 08:52] LABS: Free T3 3.15 pg/ml (2.77-5.27)
[2025-07-16 09:06] LABS: TSH 2.07 uIU/ml (0.47-4.68)
[2025-07-16 09:10] LABS: Ferritin 19.4 ng/ml (6.24-137)
[2025-07-16 09:41] LABS: Glycohemoglobin (HgbA1c) 5.2 % (4.0-5.9)
[2025-07-16 09:59] LABS: CRP, Ultra Sensitive < 0.30 mg/L (0.30-5.00)
== END ==
LOC: REG 06:57
PROVIDERS: ATTENDING PHYSICIAN Nurse Practitioner Family; FAMILY PHYSICIAN Physician Assistant Medical
DX: E34.9 Endocrine disorder, unspecified (principal); E55.9 Vitamin D deficiency, unspecified; E53.9 Vitamin B deficiency, unspecified; R53.83 Other fatigue; H04.129 Dry eye syndrome of unspecified lacrimal gland; L30.9 Dermatitis, unspecified
CPT/HCPCS: 36415; 82627; 82670; 82728; 83036; 84144; 84146; 84270; 84402; 84403; 84439; 84443; 84481; 86140; 86141